=== PATIENT | male | born 1960 | race Caucasian/White ===

== ENCOUNTER 2017-07-11 06:51 | Emergency (ER) | payer OTHER ==
[~2017-07-11] VITALS: Ht 177.8 cm; Wt 97.5 kg
[~2017-07-11 06:51] MED LIST: ALBU90OI INH; AMOCLA875 PO; AMOX500 PO; CETI10 PO; CYCL10 PO; DEXA4 PO; DIAZ10; DIAZ10 PO; DIAZ5 PO; DOXY100 PO; FLUT.05NI; HYDACE10B PO; HYDACE5 PO; HYDACE7.5 PO; HYDGUAL120 PO; IBUHYD; IBUP800; IBUP800 PO; LISI10 PO; LISI5 PO; LORA10ER PO; MECL25 PO; META800 PO; METCAR500 PO; NAPR220 PO; NAPR500 PO; NYST100TC TOP; Norco 10-325 T1 EACH PO; Norco 5-325 Ta1 EACH PO; OXYACE5T PO; OXYACE7.5T PO; PRED10 PO; PROCODE120 PO; PRODEXEL PO; Percocet 5-3251 EACH PO; Prednisone20 MG PO; RXCYCL10 PO; RXHYDACE PO; Zofran Odt4 MG SL
[2017-07-11] MEDS ORDERED: Prednisone20 MG PO (08:25)
[2017-07-11] MEDS ORDERED: Robaxin-750750 MG PO (08:25)
[2017-07-11] MEDS ORDERED: Ultram50 MG PO (08:25)
== END 2017-07-11 08:38 | disposition home or self-care (01) ==
LOC: ER 06:51
DX: S29.012A Strain of muscle and tendon of back wall of thorax, initial encounter (principal); M54.30 Sciatica, unspecified side; X50.0XXA Overexertion from strenuous movement or load, initial encounter; Z88.1 Allergy status to other antibiotic agents; Z88.2 Allergy status to sulfonamides
CPT/HCPCS: 71101; 99283

== ENCOUNTER 2017-07-12 07:02 | Emergency (ER) | payer OTHER ==
[~2017-07-12] VITALS: Ht 175.3 cm; Wt 86.2 kg
[~2017-07-12 07:02] MED LIST changes: +Robaxin-750750 MG PO; +Ultram50 MG PO
== END 2017-07-12 08:03 | disposition home or self-care (01) ==
LOC: ER 07:02
DX: S29.012A Strain of muscle and tendon of back wall of thorax, initial encounter (principal); Z88.1 Allergy status to other antibiotic agents; Z88.2 Allergy status to sulfonamides; Z88.8 Allergy status to other drugs, medicaments and biological substances; Z79.899 Other long term (current) drug therapy; Z79.52 Long term (current) use of systemic steroids; Z90.49 Acquired absence of other specified parts of digestive tract; X58.XXXA Exposure to other specified factors, initial encounter
CPT/HCPCS: 99282

== ENCOUNTER 2017-07-17 06:25 | Emergency (ER) | payer OTHER ==
[~2017-07-17] VITALS: Ht 177.8 cm; Wt 97.5 kg
[2017-07-17] MEDS ORDERED: Prednisone20 MG PO (07:26)
[2017-07-17] MEDS ORDERED: Acetaminophen-1 EAC1 PO ×2 (07:26→07:27)
== END 2017-07-17 07:38 | disposition home or self-care (01) ==
LOC: ER 06:25
DX: S29.012A Strain of muscle and tendon of back wall of thorax, initial encounter (principal); Z88.1 Allergy status to other antibiotic agents; Z88.2 Allergy status to sulfonamides; Z88.8 Allergy status to other drugs, medicaments and biological substances; Z90.49 Acquired absence of other specified parts of digestive tract; X58.XXXA Exposure to other specified factors, initial encounter
CPT/HCPCS: 99283

== ENCOUNTER 2017-08-07 06:51 | Emergency (ER) | payer OTHER ==
[~2017-08-07] VITALS: Ht 177.8 cm; Wt 97.5 kg
[~2017-08-07 06:51] MED LIST changes: +Acetaminophen-1 EAC1 PO
[2017-08-07] MEDS ORDERED: TRAM50 PO (07:28)
[2017-08-07] MEDS ORDERED: TEMA30 PO (07:28)
[2017-08-07] MEDS ORDERED: Vanadom350 MG PO (07:29)
[2017-08-07] MEDS ORDERED: Prednisone20 MG PO (08:14)
== END 2017-08-07 09:02 | disposition home or self-care (01) ==
LOC: ER 06:51
DX: M54.41 Lumbago with sciatica, right side (principal); Z88.1 Allergy status to other antibiotic agents; Z88.2 Allergy status to sulfonamides; Z88.8 Allergy status to other drugs, medicaments and biological substances; Z79.899 Other long term (current) drug therapy; Z79.52 Long term (current) use of systemic steroids; Z87.891 Personal history of nicotine dependence
CPT/HCPCS: 96372; 99283; J1885

== ENCOUNTER 2017-09-05 04:24 | Emergency (ER) | payer OTHER ==
[~2017-09-05] VITALS: Ht 177.8 cm; Wt 97.5 kg
[~2017-09-05 04:24] MED LIST changes: +TEMA30 PO; +TRAM50 PO; +Vanadom350 MG PO
[2017-09-05] MEDS ORDERED: DIAZ2 PO (04:41)
[2017-09-05] MEDS ORDERED: IBUP600 PO (04:48)
[2017-09-05] MEDS ORDERED: Prednisone50 MG PO (04:48)
[2017-09-05] MEDS ORDERED: Robaxin-750750 MG PO (04:48)
== END 2017-09-05 05:10 | disposition home or self-care (01) ==
LOC: ER 04:24
DX: S29.012A Strain of muscle and tendon of back wall of thorax, initial encounter (principal); M54.32 Sciatica, left side; Z87.891 Personal history of nicotine dependence; Z88.1 Allergy status to other antibiotic agents; Z88.2 Allergy status to sulfonamides; Z88.6 Allergy status to analgesic agent; Z88.8 Allergy status to other drugs, medicaments and biological substances; X50.0XXA Overexertion from strenuous movement or load, initial encounter
CPT/HCPCS: 96372; 99283; J1100; J1885

== ENCOUNTER 2019-02-03 06:29 | Emergency (ER) | payer OTHER ==
[~2019-02-03] VITALS: Ht 177.8 cm; Wt 104.3 kg
[~2019-02-03 06:29] MED LIST changes: +CLOTRIMAZOLE TOP; +DIAZ2 PO; +IBUP600 PO; +Prednisone50 MG PO
[2019-02-03] MEDS ORDERED: XANAX (06:49)
[2019-02-03] MEDS ORDERED: Robaxin-750750 MG PO (06:59)
== END 2019-02-03 07:07 | disposition home or self-care (01) ==
LOC: ER 06:29
DX: M54.5 Low back pain (principal); M54.2 Cervicalgia; Z87.891 Personal history of nicotine dependence; Z88.2 Allergy status to sulfonamides; Z88.8 Allergy status to other drugs, medicaments and biological substances; Z88.1 Allergy status to other antibiotic agents; Z88.5 Allergy status to narcotic agent; Z79.899 Other long term (current) drug therapy
CPT/HCPCS: 99282